=== PATIENT | female | born 1975 | race Caucasian/White ===

== ENCOUNTER 2018-03-06 10:32 | Emergency (ER) | payer OTHER ==
[2018-03-06] MEDS: KETOROLAC 60 MG/2 ML VIAL (J1885) IM (11:30)
== END 2018-03-06 12:13 | disposition home or self-care (01) ==
LOC: M ED 10:32
DX: G89.29 Other chronic pain (principal); M25.562 Pain in left knee; Z79.899 Other long term (current) drug therapy
CPT/HCPCS: J1885